=== PATIENT | male | born 1950 | race Hispanic/Latino ===

== ENCOUNTER 2020-01-19 20:43 | Emergency (ER) | payer OTHER ==
[2020-01-19 22:01] LABS: Absolute Lymphocytes (CBC) 1.2 K/uL (0.7-4.9); Basophils % 0.6 % (0-1.3); Hematocrit 42.3 % (39.6-49.0); Lymphocytes % 16.3 % (15.3-44.8); MPV 8.7 fL (7.6-11.3); RBC Red Blood Cell Count 5.34 M/uL (4.33-5.43)
[2020-01-19] MEDS ORDERED: MAGNE/ALUM HYDROXD 30 ML UCUP ONE (22:05)
[2020-01-19] MEDS ORDERED: LIDOCAINE VISCOUS 2% SOLN 15 ML UDC ONE (22:06)
[2020-01-19 22:16] LABS: Bilirubin Direct 0.2 mg/dL (0-0.2); Bilirubin Total 0.6 mg/dL (0.2-1.0); Potassium 3.5 mmol/L (3.5-5.1); Protein, Total 7.9 g/dL (6.4-8.2)
[2020-01-19 23:04] LABS: Urine Blood NEGATIVE (NEG); Urine Glucose NEGATIVE (NEG); Urine Protein NEGATIVE (NEG); Urine Specific Gravity 1.025 (1.005-1.030); Urine pH 7.5 (5.0-7.0)
[2020-01-20 01:06] VITALS: TEMP 97.4
[2020-01-20 01:11] VITALS: BP 135/83; O2SAT 98
--- NOTE | 2020-01-20 15:52 | RAD REPORT ---
EXAM DESCRIPTION: Abdomen Pelvis W Contrast CLINICAL HISTORY: 69 years Male ABD PAIN COMPARISON: None. TECHNIQUE: Contiguous axial images obtained through the abdomen and pelvis following IV contrast. Re formatted images obtained. This exam was performed according to our department optimization program which includes automated exp osure control, adjustment of the mA and/or kv according to patient size and/or use of iterative recon struction technique. FINDINGS: Mild atelectatic changes. Small hiatal hernia. There appears to be wall thickening in the lower esophagus and clinical correlat ion is recommended to exclude the possibility of esophagitis. There is a small area of low density in the liver adjacent to the area of the gallbladder fossa likel y a small cyst. The spleen and pancreas appear unremarkable. No adrenal masses. The kidneys appear unremarkable. No hydronephrosis. The gallbladder is visualized. Atherosclerotic calcifications. No aneurysmal dilatation of the aorta. No bowel obstruction. The appendix appears unremarkable. There is colonic diverticulosis. No significant free pelvic fluid. The prostate gland is slightly enlarged. There is a small fat-containing right inguinal hernia. Small fat-containing umbilical hernia. Degenerative changes in the spine. IMPRESSION: There appears to be wall thickening in the lower esophagus which could be from esophagit is. Clinical correlation recommended. No acute intra-abdominal abnormality is identified. The prostate gland is slightly enlarged. Electronically signed by: Rancho Ring MD 01/19/2020 11:23 PM CDT Due to temporary technical issues with the PACS/Fluency reporting system, reports are being signed by the in house radiologist without review asa courtesy to ensure prompt reporting. The interpreting ra diologist is fully responsible for the content of the report.
--- NOTE | 2020-01-22 17:30 | EDPHYS ---
Physician Documentation [facility] Name: Hermilo Dickens Age: 69 yrs Sex: Male : 1950 Arrival Date: 01/19/2020 Time: 20:48 Bed 6 Private MD: ED Physician David Hughes HPI: 01/18 21:29 This 69 yrs old Male presents to ER via Ambulatory with complaints of mh7 Vomiting, Acid Reflux. 21:29 The patient presents to the emergency department with nausea, that is moderate, mh7 abdominal pain, of the epigastric area, described as burning, intermittent, waxing and waning, and does not radiate. Onset: The symptoms/episode began/occurred 5 day(s) ago. Possible causes: unknown. The symptoms are aggravated by food , The symptoms are alleviated by prescription meds. Associated signs and symptoms: Pertinent negatives: anorexia, belching, constipation, diarrhea, dysuria, fever, flatulence, GI bleeding, hematuria. Severity of symptoms: At their worst the symptoms were moderate today, in the emergency department the symptoms have improved markedly. The patient has not experienced similar symptoms in the past. The patient has been recently seen by a physician: the patient's primary care provider. Historical: - Allergies: 20:56 No Known Allergies; ca1 - Home Meds: 20:56 pantoprazole oral oral [Active]; Amoxicillin Oral [Active]; Metronidazole Oral [Active];ca1 - PMHx: 20:56 None; ca1 - PSHx: 20:56 None; ca1 - Immunization history:: Adult Immunizations up to date. - Social history:: Smoking status: Patient denies any tobacco usage or history of. ROS: 21:29 Constitutional: Negative for fever, chills, and weight loss, Eyes: Negative for injury, mh7 pain, redness, and discharge, ENT: Negative for injury, pain, and discharge, Neck: Negative for injury, pain, and swelling, Cardiovascular: Negative for chest pain, palpitations, and edema, Respiratory: Negative for shortness of breath, cough, wheezing, and pleuritic chest pain, Back: Negative for injury and pain, : Negative for injury, bleeding, discharge, and swelling, MS/Extremity: Negative for injury and deformity, Skin: Negative for injury, rash, and discoloration, Neuro: Negative for headache, weakness, numbness, tingling, and seizure, Psych: Negative for depression, anxiety, suicide ideation, homicidal ideation, and hallucinations, Allergy/Immunology: Negative for hives, rash, and allergies, Endocrine: Negative for neck swelling, polydipsia, polyuria, polyphagia, and marked weight changes, Hematologic/Lymphatic: Negative for swollen nodes, abnormal bleeding, and unusual bruising. Exam: 21:29 Constitutional: This is a well developed, well nourished patient who is awake, alert, 7 and in no acute distress. Head/Face: Normocephalic, atraumatic. Neck: Trachea midline, no thyromegaly or masses palpated, and no cervical lymphadenopathy. Supple, full range of motion without nuchal rigidity, or vertebral point tenderness. No Meningismus. Chest/axilla: Normal chest wall appearance and motion. Nontender with no deformity. No lesions are appreciated. Cardiovascular: Regular rate and rhythm with a normal S1 and S2. No gallops, murmurs, or rubs. Normal PMI, no JVD. No pulse deficits. Respiratory: Lungs have equal breath sounds bilaterally, clear to auscultation and percussion. No rales, rhonchi or wheezes noted. No increased work of breathing, no retractions or nasal flaring. 21:29 Back: No spinal tenderness. No costovertebral tenderness. Full range of motion. Skin: Warm, dry with normal turgor. Normal color with no rashes, no lesions, and no evidence of cellulitis. MS/ Extremity: Pulses equal, no cyanosis. Neurovascular intact. Full, normal range of motion. Neuro: Awake and alert, GCS 15, oriented to person, place, time, and situation. Cranial nerves II-XII grossly intact. Motor strength 5/5 in all extremities. Sensory grossly intact. Cerebellar exam normal. Normal gait. Psych: Awake, alert, with orientation to person, place and time. Behavior, mood, and affect are within normal limits. 21:58 ECG was reviewed by the Attending Physician. [facility] Vital Signs: 20:51 BP 154 / 94; Pulse 105; Resp 19 S; Temp 97.4(TE); Pulse Ox 98% on R/A; Weight 81.65 kg ca1 (R); Height 5 ft. 6 in. (167.64 cm) (M); 22:38 BP 144 / 82; Pulse 82; Resp 14; Pulse Ox 100% on R/A; Pain 0/10; ao 23:47 BP 115 / 74; Pulse 85; Resp 18; Pulse Ox 99% on R/A; ao 01/19 00:51 BP 135 / 83; Pulse 80; Resp 16; Pulse Ox 98% on R/A; ao 01/18 20:51 Body Mass Index 29.05 (81.65 kg, 167.64 cm) ca1 MDM: 01/18 21:18 Patient medically screened. [facility] 23:57 Differential diagnosis: Nonspecific abd pain, gastritis, pancreatitis, diverticulitis. [facility] Data reviewed: vital signs, nurses notes, lab test result(s), EKG, radiologic studies, CT scan. 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 Interpretation: normal. Counseling: I had a detailed discussion with the patient and/or guardian regarding: the historical points, exam findings, and any diagnostic results supporting the discharge/admit diagnosis, lab results, radiology results, the need for outpatient follow up, to return to the emergency department if symptoms worsen or persist or if there are any questions or concerns that arise at home. Response to treatment: the patient's symptoms have resolved after treatment, the patient's blood pressure is in an acceptable range, mental status has returned to baseline, the patient no longer shows bradycardia, the patient is not short of breath, the patient is not tachycardic, the patient's pain is gone, the patient's temperature has normalized. 01/18 21:23 Order name: Basic Metabolic Panel; Complete Time: 22:26 [facility] 01/18 21:23 Order name: CBC with Diff; Complete Time: 22:26 [facility] 01/18 21:23 Order name: Hepatic Function; Complete Time: 22:26 [facility] 01/18 21:23 Order name: Lipase; Complete Time: 22:26 [facility] 01/18 22:00 Order name: CT Abd/Pelvis - IV Contrast Only [facility] 01/18 22:59 Order name: Urine Dipstick--Ancillary (enter results); Complete Time: 23:38 nj 01/18 21:23 Order name: IV Saline Lock; Complete Time: 22:09 [facility] 01/18 21:23 Order name: Labs collected and sent; Complete Time: 22:09 7 01/18 21:23 Order name: Urine Dipstick-Ancillary (obtain specimen); Complete Time: 23:04 [facility] 01/18 21:23 Order name: EKG - Nurse/Tech; Complete Time: 22:08 mh7 EC:58 Rate is 83 beats/min. Rhythm is regular. QRS [place] is Normal. IA interval is normal. QRS mh7 interval is normal. QT interval is normal. No Q waves. T waves are Normal. No ST changes noted. Clinical impression: Normal ECG. Administered Medications: 22:02 Drug: GI Cocktail without - (Maalox Suspension 30 ml, Lidocaine Liquid 2 % 15 lp1 ml) Route: PO; 23:06 Follow up: Response: No adverse reaction; Pain is decreased ao Disposition: 01/20/20 00:00 Discharged to Home. Impression: Esophagitis, unspecified, Nausea and vomiting. - Condition is Stable. - Discharge Instructions: Esophagitis, Nausea and Vomiting, Adult, [id number]. - Prescriptions for Zofran ODT 4 mg Oral tablet,disintegrating - place 1 tablet by TRANSLINGUAL route every 8 hours As needed; 10 tablet. - Medication Reconciliation Form, Thank You Letter, Antibiotic Education, Prescription Opioid Use form. - Follow up: Private Physician; When: 2 - 3 days; Reason: Worsening of condition, Re-evaluation by your physician. Follow up: Miguel Ángel Acosta MD; When: 2 - 3 days; Reason: If symptoms return, Worsening of condition. - Problem is new. - Symptoms have improved. Signatures: Dispatcher [employer] EDPA Kaycee Velázquez RN RN lp1 Tarik Tovar RN RN ao Acob, Cheryl, RN RN ca1 Holmes, Maurice, MD MD 7 Corrections: (The following items were deleted from the chart) 01/19 00:52 00:00 01/20/2020 00:00 Discharged to Home. Impression: Esophagitis, unspecified; Nausea ao and vomiting. Condition is Stable. Forms are Medication Reconciliation Form, Thank You Letter, Antibiotic Education, Prescription Opioid Use. Follow up: Private Physician; When: 2 - 3 days; Reason: Worsening of condition, Re-evaluation by your physician. Follow up: Miguel Ángel Acosta; When: 2 - 3 days; Reason: If symptoms return, Worsening of condition. Problem is new. Symptoms have improved. mh7
--- NOTE | 2020-01-22 17:30 | ER ---
Nurse's Notes [facility] Name: Hermilo Dickens Age: 69 yrs Sex: Male : 1950 Arrival Date: 01/19/2020 Time: 20:48 Bed 6 Private MD: Diagnosis: Esophagitis, unspecified;Nausea and vomiting Presentation: 01/18 20:51 Chief complaint: Patient states: Abdominal pain since 4-5 days ago. Reports N/V. Went ca1 to the clinic yesterday and today, was prescribed amox, pantoprazole, and metronidazole. States, "Am here because every time I eat I still feel very nauseated and I have frequent hiccups". Denies fever and diarrhea. Coronavirus screen: Proceed with normal triage. Patient denies a cough. Patient denies shortness of breath or difficulty breathing. Patient denies measured and/or subjective temperature greater than 100.4F prior to today's visit. Patient denies travel on a cruise ship or to a country the [facility] currently lists as an affected area. Patient denies contact with known and/or suspected case of COVID-19. Ebola Screen: Patient negative for fever greater than or equal to 101.5 degrees Fahrenheit, and additional compatible Ebola Virus Disease symptoms Patient denies exposure to infectious person. Patient denies travel to an Ebola-affected area in the 21 days before illness onset. No symptoms or risks identified at this time. Initial Sepsis Screen: Does the patient meet any 2 criteria? No. Patient's initial sepsis screen is negative. Does the patient have a suspected source of infection? No. Patient's initial sepsis screen is negative. Risk Assessment: Do you want to hurt yourself or someone else? Patient reports no desire to harm self or others. Onset of symptoms was January 19, 2020. 20:51 Method Of Arrival: Ambulatory ca1 20:51 Acuity: MAXIMILIAN 3 ca1 Triage Assessment: 21:21 GI: Reports nausea. ao Historical: - Allergies: 20:56 No Known Allergies; ca1 - Home Meds: 20:56 pantoprazole oral oral [Active]; Amoxicillin Oral [Active]; Metronidazole Oral [Active];ca1 - PMHx: 20:56 None; ca1 - PSHx: 20:56 None; ca1 - Immunization history:: Adult Immunizations up to date. - Social history:: Smoking status: Patient denies any tobacco usage or history of. Screenin:21 Abuse screen: Denies threats or abuse. Denies injuries from another. Nutritional ao screening: No deficits noted. Tuberculosis screening: No symptoms or risk factors identified. Fall Risk None identified. Assessment: 21:18 General: Appears in no apparent distress. comfortable, Behavior is calm, cooperative, ao appropriate for age. Pain: Denies pain. Neuro: Level of Consciousness is awake, alert, obeys commands, Oriented to person, place, time, situation, Appropriate for age Moves all extremities. Full function Speech is normal, Facial symmetry appears normal, Pupils are PERRLA. Cardiovascular: Capillary refill < 3 seconds Patient's skin is warm and dry. Respiratory: Airway is patent Respiratory effort is even, unlabored, Respiratory pattern is regular, symmetrical. GI: Abdomen is round non-distended. : No deficits noted. No signs and/or symptoms were reported regarding the genitourinary system. EENT: No signs and/or symptoms were reported regarding the EENT system. Derm: No signs and/or symptoms reported regarding the dermatologic system. Skin is intact, Skin is pink, warm \\T\\ dry. Musculoskeletal: No signs and/or symptoms reported regarding the musculoskeletal system. Circulation, motion, and sensation intact. Range of motion: intact in all extremities. 22:38 Reassessment: Patient appears in no apparent distress at this time. Patient and/or ao family updated on plan of care and expected duration. Pain level reassessed. Pt in bed with no distress. 23:47 Reassessment: Patient appears in no apparent distress at this time. Patient and/or ao family updated on plan of care and expected duration. Pain level reassessed. Vital Signs: 20:51 BP 154 / 94; Pulse 105; Resp 19 S; Temp 97.4(TE); Pulse Ox 98% on R/A; Weight 81.65 kg ca1 (R); Height 5 ft. 6 in. (167.64 cm) (M); 22:38 BP 144 / 82; Pulse 82; Resp 14; Pulse Ox 100% on R/A; Pain 0/10; ao 23:47 BP 115 / 74; Pulse 85; Resp 18; Pulse Ox 99% on R/A; ao 01/19 00:51 BP 135 / 83; Pulse 80; Resp 16; Pulse Ox 98% on R/A; ao 01/18 20:51 Body Mass Index 29.05 (81.65 kg, 167.64 cm) ca1 ED Course: 01/18 20:00 EKG done, by ED staff. ao 20:48 Patient arrived in ED. bp1 20:55 Triage completed. ca1 20:56 Arm band placed on right wrist. ca1 20:58 David Hughes MD is Attending Physician. [facility] 21:10 Tarik Tovar, RN is Primary Nurse. ao 21:21 Patient has correct armband on for positive identification. Pulse ox on. NIBP on. ao 21:57 Inserted saline lock: 20 gauge antecubital area, using aseptic technique. tt3 22:45 CT Abd/Pelvis - IV Contrast Only In Process Unspecified. EDMS 23:59 Miguel Ángel Acosta MD is Referral Physician. [facility] 01/19 00:51 No provider procedures requiring assistance completed. IV discontinued, intact, ao bleeding controlled, No redness/swelling at site. Pressure dressing applied. Administered Medications: 01/18 22:02 Drug: GI Cocktail without - (Maalox Suspension 30 ml, Lidocaine Liquid 2 % 15 lp1 ml) Route: PO; 23:06 Follow up: Response: No adverse reaction; Pain is decreased ao Outcome: 01/19 00:00 Discharge ordered by . [facility] 00:51 Discharged to home ambulatory. ao 00:51 Condition: stable 00:51 Discharge instructions given to patient, Instructed on discharge instructions, follow up and referral plans. Demonstrated understanding of instructions, follow-up care, medications. 00:52 Patient left the ED. ao Signatures: Dispatcher [employer] EDVT Kaycee Velázquez RN RN lp1 Tarik Tovar, ALIX THOMSON ao Dennise Diana RN RN ca1 Nery Timmons bp1 David Hughes MD MD [facility] Korey, Shon tt3
== END 2020-01-20 00:52 | disposition home or self-care (01) ==
LOC: ER 20:43
DX: K20.9 Esophagitis, unspecified (principal)
CPT/HCPCS: 85025; 80048; 36415; 80076; 81003; 83690; 74177; 99284; Q9967

== ENCOUNTER 2020-01-20 22:54 | Emergency (ER) | payer OTHER ==
[2020-01-21] MEDS ORDERED: NA CHLORIDE 0.9% 1,000 ML ONE (01:05)
[2020-01-21] MEDS ORDERED: METOCLOPRAMIDE 10 MG/2mL INJ ONE (01:05)
[2020-01-21] MEDS ORDERED: FAMOTIDINE 20 MG/2 ML VIAL IV ONE (01:05)
[2020-01-21 01:23] LABS: Absolute Lymphocytes (CBC) 1.3 K/uL (0.7-4.9); Basophils % 0.8 % (0-1.3); Hematocrit 41.1 % (39.6-49.0); Lymphocytes % 17.5 % (15.3-44.8); MPV 8.8 fL (7.6-11.3); RBC Red Blood Cell Count 5.16 M/uL (4.33-5.43)
[2020-01-21 01:43] LABS: Albumin 4.1 g/dL (3.4-5.0); Bilirubin Direct 0.2 mg/dL (0-0.2); Bilirubin Total 0.8 mg/dL (0.2-1.0); Potassium 3.5 mmol/L (3.5-5.1); Protein, Total 8.1 g/dL (6.4-8.2)
[2020-01-21] MEDS ORDERED: LIDOCAINE VISCOUS 2% SOLN 15 ML UDC ONE (03:32)
[2020-01-21] MEDS ORDERED: MAGNE/ALUM HYDROXD 30 ML UCUP ONE (03:32)
[2020-01-21 04:46] VITALS: TEMP 97.7
[2020-01-21 04:48] VITALS: BP 116/74; O2SAT 97
--- NOTE | 2020-01-22 18:35 | ER ---
Nurse's Notes [facility] Name: Hermilo Dickens Age: 69 yrs Sex: Male : 1950 Arrival Date: 01/20/2020 Time: 22:56 Bed 23 Private MD: Diagnosis: Gastro-esophageal reflux disease with esophagitis Presentation: 01/19 23:14 Chief complaint: Patient states: Was seen yesterday for same complaint, reports not sg improving at this time. Coronavirus screen: Proceed with normal triage. Ebola Screen: Patient negative for fever greater than or equal to 101.5 degrees Fahrenheit, and additional compatible Ebola Virus Disease symptoms Patient denies exposure to infectious person. Patient denies travel to an Ebola-affected area in the 21 days before illness onset. No symptoms or risks identified at this time. Initial Sepsis Screen: Does the patient meet any 2 criteria? No. Patient's initial sepsis screen is negative. Does the patient have a suspected source of infection? No. Patient's initial sepsis screen is negative. Risk Assessment: Do you want to hurt yourself or someone else? Patient reports no desire to harm self or others. Onset of symptoms was January 20, 2020. Care prior to arrival: None. Transition of care: patient was not received from another setting of care. 23:14 Method Of Arrival: EMS: [facility] sg 23:14 Acuity: MAXIMILIAN 3 sg Historical: - Allergies: 23:13 No Known Allergies; sg - PMHx: 01/20 00:21 GERD; sg - PSHx: 01/19 23:13 None; sg - Immunization history:: Adult Immunizations up to date. - Social history:: Smoking status: Patient denies any tobacco usage or history of. Screenin:20 Abuse screen: Denies threats or abuse. Nutritional screening: No deficits noted. ea Tuberculosis screening: No symptoms or risk factors identified. Fall Risk None identified. Assessment: 01/20 00:20 General: Appears in no apparent distress. Behavior is appropriate for age. Pain: Denies ea pain. Neuro: Level of Consciousness is awake, alert, obeys commands, Oriented to person, place, time, situation. Cardiovascular: Patient's skin is warm and dry. Respiratory: Airway is patent Respiratory effort is even, unlabored, Respiratory pattern is regular, symmetrical. GI: Reports gaseousness, indigestion, belching. Derm: Skin is pink, warm \T\ dry. Vital Signs: 01/19 23:26 BP 142 / 60; Pulse 88; Resp 16; Temp 97.7; Pulse Ox 100% on R/A; sg 01/20 02:57 BP 116 / 74; Pulse 77; Resp 16; Temp 97.7; Pulse Ox 97% on R/A; sg 04:00 BP 136 / 62; Pulse 72; Resp 17; Temp 97.9; Pulse Ox 99% on R/A; sg ED Course: 01/19 22:56 Patient arrived in ED. ds1 23:14 Arm band placed on. sg 23:16 Triage completed. sg 23:30 Patient has correct armband on for positive identification. Bed in low position. Call ea light in reach. 23:56 David Hughes MD is Attending Physician. [facility] 01/20 00:20 Vega Ramsey, RN is Primary Nurse. sg 01:10 Initial lab(s) drawn, by ks, sent to lab. Inserted saline lock: 20 gauge in right sg antecubital area, using aseptic technique. Blood collected. 02:29 ekg monitor tech on. Pulse ox on. NIBP on. sg 04:20 Miguel Ángel Acosta MD is Referral Physician. [facility] 04:39 No provider procedures requiring assistance completed. IV discontinued, intact, sg bleeding controlled, No redness/swelling at site. Pressure dressing applied. Administered Medications: 01:10 Drug: NS 0.9% 1000 ml Route: IV; Rate: 1000 ml; Site: right antecubital; sg 01:47 Follow up: Response: No adverse reaction; IV Status: Completed infusion; IV Intake: sg 1000ml 01:10 Drug: Reglan 10 mg Route: IVP; Site: right antecubital; sg 01:40 Follow up: Response: No adverse reaction; No change in condition sg 01:10 Drug: Pepcid 20 mg Route: IVP; Site: right antecubital; sg 01:40 Follow up: Response: No adverse reaction; Pain is unchanged, physician notified 03:28 Drug: GI Cocktail without - (Maalox Suspension 30 ml, Lidocaine Liquid 2 % 15 rv ml) Route: PO; 04:20 Follow up: Response: No adverse reaction; Pain is decreased sg Intake: 01:47 IV: 1000ml; Total: 1000ml. sg Outcome: 04:21 Discharge ordered by 7 04:39 Discharged to home ambulatory. sg 04:39 Condition: good 04:39 Discharge instructions given to patient, Instructed on discharge instructions, follow up and referral plans. medication usage, safety practices, Demonstrated understanding of instructions, follow-up care, medications. 04:40 Patient left the ED. sg Signatures: Vega Ramsey RN RN sg Sanford, Demi ds1 Carli Sosa RN RN ea Vicente, Ronaldo, RN RN rv Holmes, Maurice, MD MD 7 Corrections: (The following items were deleted from the chart) 01:02 01/19 23:20 General: Appears in no apparent distress. Behavior is appropriate for age, [facility] 01/20 01:01/19 23:20 Pain: Denies pain. [facility] 01/20 01:01/19 23:20 Neuro: Level of Consciousness is awake, alert, obeys commands, Oriented to ea person, place, time, situation, 01/20 01:01/19 23:20 Cardiovascular: Patient's skin is warm and dry. [facility] 01/20 01:01/19 23:20 Respiratory: Airway is patent Respiratory effort is even, unlabored, ea Respiratory pattern is regular, symmetrical, 01/20 01:01/19 23:20 GI: Reports gaseousness, indigestion, belching [facility] 01/20 01:01/19 23:20 Derm: Skin is pink, warm \T\ dry. [facility]
--- NOTE | 2020-01-22 18:35 | EDPHYS ---
Physician Documentation [facility] Name: Hermilo Dickens Age: 69 yrs Sex: Male : 1950 Arrival Date: 01/20/2020 Time: 22:56 Bed 23 Private MD: ED Physician David Hughes HPI: 01/20 02:08 This 69 yrs old Male presents to ER via EMS with complaints of Acid mh7 Reflux-nausea. 02:08 The patient presents to the emergency department with nausea, that is mild, vomiting, mh7 that is intermittent. Onset: The symptoms/episode began/occurred yesterday. Possible causes: unknown. The symptoms are aggravated by food , The symptoms are alleviated by nothing. Associated signs and symptoms: Pertinent positives: belching, Pertinent negatives: abdominal pain, anorexia, constipation, diarrhea, dysuria, fever, flatulence, GI bleeding, hematuria. Severity of symptoms: At their worst the symptoms were moderate in the emergency department the symptoms have improved moderately. Historical: - Allergies: 01/19 23:13 No Known Allergies; sg - PMHx: 01/20 00:21 GERD; sg - PSHx: 01/19 23:13 None; sg - Immunization history:: Adult Immunizations up to date. - Social history:: Smoking status: Patient denies any tobacco usage or history of. ROS: 01/20 02:08 Constitutional: Negative for fever, chills, and weight loss, Eyes: Negative for injury, mh7 pain, redness, and discharge, ENT: Negative for injury, pain, and discharge, Neck: Negative for injury, pain, and swelling, Cardiovascular: Negative for chest pain, palpitations, and edema, Respiratory: Negative for shortness of breath, cough, wheezing, and pleuritic chest pain, Back: Negative for injury and pain, : Negative for injury, bleeding, discharge, and swelling, MS/Extremity: Negative for injury and deformity, Skin: Negative for injury, rash, and discoloration, Neuro: Negative for headache, weakness, numbness, tingling, and seizure, Psych: Negative for depression, anxiety, suicide ideation, homicidal ideation, and hallucinations, Allergy/Immunology: Negative for hives, rash, and allergies, Endocrine: Negative for neck swelling, polydipsia, polyuria, polyphagia, and marked weight changes, Hematologic/Lymphatic: Negative for swollen nodes, abnormal bleeding, and unusual bruising. Exam: 02:08 Constitutional: This is a well developed, well nourished patient who is awake, alert, mh7 and in no acute distress. Head/Face: Normocephalic, atraumatic. Eyes: Pupils equal round and reactive to light, extra-ocular motions intact. Lids and lashes normal. Conjunctiva and sclera are non-icteric and not injected. Cornea within normal limits. Periorbital areas with no swelling, redness, or edema. Neck: Trachea midline, no thyromegaly or masses palpated, and no cervical lymphadenopathy. Supple, full range of motion without nuchal rigidity, or vertebral point tenderness. No Meningismus. Chest/axilla: Normal chest wall appearance and motion. Nontender with no deformity. No lesions are appreciated. Cardiovascular: Regular rate and rhythm with a normal S1 and S2. No gallops, murmurs, or rubs. Normal PMI, no JVD. No pulse deficits. Respiratory: Lungs have equal breath sounds bilaterally, clear to auscultation and percussion. No rales, rhonchi or wheezes noted. No increased work of breathing, no retractions or nasal flaring. Abdomen/GI: Soft, non-tender, with normal bowel sounds. No distension or tympany. No guarding or rebound. No evidence of tenderness throughout. Back: No spinal tenderness. No costovertebral tenderness. Full range of motion. Skin: Warm, dry with normal turgor. Normal color with no rashes, no lesions, and no evidence of cellulitis. MS/ Extremity: Pulses equal, no cyanosis. Neurovascular intact. Full, normal range of motion. Neuro: Awake and alert, GCS 15, oriented to person, place, time, and situation. Cranial nerves II-XII grossly intact. Motor strength 5/5 in all extremities. Sensory grossly intact. Cerebellar exam normal. Normal gait. Psych: Awake, alert, with orientation to person, place and time. Behavior, mood, and affect are within normal limits. Vital Signs: 01/19 23:26 BP 142 / 60; Pulse 88; Resp 16; Temp 97.7; Pulse Ox 100% on R/A; sg 01/20 02:57 BP 116 / 74; Pulse 77; Resp 16; Temp 97.7; Pulse Ox 97% on R/A; sg 04:00 BP 136 / 62; Pulse 72; Resp 17; Temp 97.9; Pulse Ox 99% on R/A; sg MDM: 00:39 Patient medically screened. [facility] 04:19 Differential diagnosis: gastritis, pancreatitis, viral gastroenteritis, mh7 gastroenteritis. Data reviewed: vital signs, nurses notes, old medical records, lab test result(s), cardiac enzymes, CBC, electrolytes. Counseling: I had a detailed discussion with the patient and/or guardian regarding: the historical points, exam findings, and any diagnostic results supporting the discharge/admit diagnosis, lab results, the need for outpatient follow up, to return to the emergency department if symptoms worsen or persist or if there are any questions or concerns that arise at home. 01/20 00:41 Order name: Basic Metabolic Panel; Complete Time: 02:16 01/20 00:41 Order name: CBC with Diff; Complete Time: 01:37 01/20 00:41 Order name: Hepatic Function; Complete Time: 02:16 01/20 00:41 Order name: Lipase; Complete Time: 02:16 01/20 02:17 Order name: Troponin (emerg Dept Use Only); Complete Time: 03:19 01/20 00:41 Order name: IV Saline Lock; Complete Time: 00:53 01/20 00:41 Order name: Labs collected and sent; Complete Time: 00:53 01/20 02:17 Order name: EKG - Nurse/Tech; Complete Time: 02:29 7 Administered Medications: 01:10 Drug: NS 0.9% 1000 ml Route: IV; Rate: 1000 ml; Site: right antecubital; sg 01:47 Follow up: Response: No adverse reaction; IV Status: Completed infusion; IV Intake: sg 1000ml 01:10 Drug: Reglan 10 mg Route: IVP; Site: right antecubital; sg 01:40 Follow up: Response: No adverse reaction; No change in condition sg 01:10 Drug: Pepcid 20 mg Route: IVP; Site: right antecubital; sg 01:40 Follow up: Response: No adverse reaction; Pain is unchanged, physician notified sg 03:28 Drug: GI Cocktail without - (Maalox Suspension 30 ml, Lidocaine Liquid 2 % 15 rv ml) Route: PO; 04:20 Follow up: Response: No adverse reaction; Pain is decreased sg Disposition: 01/21/20 04:21 Discharged to Home. Impression: Gastro-esophageal reflux disease with esophagitis. - Condition is Stable. - Discharge Instructions: Food Choices for Gastroesophageal Reflux Disease, Adult, Esophagitis, Gastroesophageal Reflux Disease, Adult. - Prescriptions for Bentyl 20 mg Oral Tablet - take 1 tablet by ORAL route every 6 hours As needed; 20 tablet. Reglan 10 mg Oral Tablet - take 1 tablet by ORAL route every 8 hours As needed take 30 minutes before meals and at bedtime; 10 tablet. - Medication Reconciliation Form, Thank You Letter, Antibiotic Education, Prescription Opioid Use form. - Follow up: Private Physician; When: 1 - 2 days; Reason: Worsening of condition, Re-evaluation by your physician. Follow up: Miguel Ángel Acosta MD; When: 1 - 2 days; Reason: Worsening of condition, Recheck today's complaints. - Problem is an ongoing problem. - Symptoms have improved. Signatures: Dispatcher [employer] EDVega Friend RN RN Bruce Montanez RN RN rv David Hughes MD MD mh7 Corrections: (The following items were deleted from the chart) 04:40 04:21 01/21/2020 04:21 Discharged to Home. Impression: Gastro-esophageal reflux disease sg with esophagitis. Condition is Stable. Forms are Medication Reconciliation Form, Thank You Letter, Antibiotic Education, Prescription Opioid Use. Follow up: Private Physician; When: 1 - 2 days; Reason: Worsening of condition, Re-evaluation by your physician. Follow up: Miguel Ángel Acosta; When: 1 - 2 days; Reason: Worsening of condition, Recheck today's complaints. Problem is an ongoing problem. Symptoms have improved. mh7
== END 2020-01-21 04:40 | disposition home or self-care (01) ==
LOC: ER 22:54
DX: K21.0 Gastro-esophageal reflux disease with esophagitis (principal)
CPT/HCPCS: 96361; 93005 ×2; 85025; 80048; 36415; 80076; 84484; 83690; 96375; 96374; 99284; J2765; J7030

== ENCOUNTER 2022-12-18 13:22 | Emergency (ER) | payer OTHER ==
--- NOTE | 2022-12-18 14:27 | RAD REPORT ---
EXAM DESCRIPTION: CT - Head Brain Wo Cont - 12/18/2022 2:09 pm CLINICAL HISTORY: Numbness COMPARISON: None TECHNIQUE: Computed axial tomography of the head was obtained. IV contrast was not requested. All CT scans are performed using dose optimization technique as appropriate and may include automated exposure control or mA/KV adjustment according to patient size. FINDINGS: An intracranial bleed is not seen The ventricles are normal in caliber No extra-axial fluid collection is noted. 7 millimeter calcification anterior right basal ganglia may be secondary to prior infection or cavern ous angioma. No surrounding edema Mild low-density areas within periventricular, deep and subcortical white matter likely represent isc hemic changes secondary to small vessel disease. Fluid within the sinuses/ mastoids is not seen. IMPRESSION: No acute intracranial abnormality is seen If patient's symptoms persist MRI of the brain would be recommended
[2022-12-18 14:31] LABS: Absolute Lymphocytes (CBC) 0.9 K/uL (0.7-4.9); Hematocrit 43.4 % (39.6-49.0); Lymphocytes % 13.2 % (15.3-44.8); MCV 77.4 fL (80-100); MPV 8.5 fL (7.6-11.3); RBC Red Blood Cell Count 5.62 M/uL (4.33-5.43)
[2022-12-18 14:37] LABS: Protime INR 1.05
--- NOTE | 2022-12-18 14:45 | RAD REPORT ---
EXAM DESCRIPTION: Bhavikjv Angio12/18/2022 2:32 pm CLINICAL HISTORY: Facial numbness COMPARISON: None TECHNIQUE: 50 cc Isovue 370 was administered intravenously. 3D MIP reconstruction performed All CT scans are performed using dose optimization technique as appropriate and may include automated exposure control or mA/KV adjustment according to patient size. FINDINGS: Subclavian and brachiocephalic artery is unremarkable Common carotid, internal carotid and external carotid arteries are unremarkable No significant stenosis/ dissection Vertebral arteries unremarkable IMPRESSION: No significant stenosis/ abnormality displayed NASCET criteria used. Mild 0-49% stenosis Moderate 50-69% stenosis Severe 70-99% stenosis
[2022-12-18 14:50] LABS: Potassium 3.9 mEq/L (3.5-5.1); Troponin High Sensitivity 6.8 pg/mL (<58.9)
--- NOTE | 2022-12-18 14:50 | RAD REPORT ---
EXAM DESCRIPTION: CTHead angio12/18/2022 2:32 pm CLINICAL HISTORY: Facial numbness COMPARISON: None TECHNIQUE: 100 cc Isovue [address] angiogram of the head was obtained. 3D MIPS reconstruction performed. All CT scans are performed using dose optimization technique as appropriate and may include automated exposure control or mA/KV adjustment according to patient size. FINDINGS: The basilar, internal carotid, anterior cerebral, middle cerebral and posterior cerebral a rteries do not demonstrate a significant abnormality An aneurysm is not seen A significant stenosis is not noted. IMPRESSION: Unremarkable exam
--- NOTE | 2022-12-18 15:28 | RAD REPORT ---
EXAM DESCRIPTION: MRI - Brain Wo Cont - 12/18/2022 3:18 pm CLINICAL HISTORY: Facial and foot numbness COMPARISON: Head CT April 19, 2023 TECHNIQUE: Axial, sagittal, and coronal magnetic resonance images of the brain were obtained. FINDINGS: 7 millimeter area of low signal right basal ganglia corresponds to a calcification. This m ay be secondary to prior infection. Mild to moderate small areas of increased signal periventricular, deep and subcortical white matter m ay be secondary to ischemic changes secondary to small vessel disease Diffusion-weighted/ADC mapping does not reveal evidence of acute infarction. The ventricles are normal caliber. An extra-axial fluid collection is not noted. Fluid within the sinuses/mastoids is not seen IMPRESSION: No acute intracranial abnormality noted
--- NOTE | 2022-12-18 16:29 | EDPHYS ---
Physician Documentation [facility] Name: Hermilo Dickens Age: 72 yrs Sex: Male : 1950 Arrival Date: 12/18/2022 Time: 13: Bed 4 Private MD: ED Physician Dwayne Alejandro HPI: 12/18 16:29 This 72 yrs old Male presents to ER via Ambulatory with complaints of Numbness ms3 Of Face, Numbness Of leg. 16:29 72-year-old male with diabetes presents for left facial and left foot numbness ms3 that began yesterday. Patient denies headache, nausea, vomiting, weakness. Patient denies alleviating or inciting factors. Patient denies pain. Historical: - Allergies: 13:30 No Known Allergies; ld1 - PMHx: 13:30 GERD; Pre Diabetic; ld1 - PSHx: 13:30 None; ld1 - Immunization history:: Adult Immunizations up to date, Client reports receiving the 2nd dose of the Covid vaccine. - Social history:: Smoking status: Patient denies any tobacco usage or history of. Patient/guardian denies using alcohol. ROS: 16:29 Constitutional: Negative for fever, and chills. Neck: Negative for injury, pain, and ms3 swelling, Cardiovascular: Negative for chest pain, and palpitations. Respiratory: Negative for shortness of breath, cough, wheezing, and pleuritic chest pain, Abdomen/GI: Negative for abdominal pain, nausea, vomiting, diarrhea, and constipation, Back: Negative for injury and pain, MS/Extremity: Negative for injury and deformity, Skin: Negative for injury, rash, and discoloration. 16:29 Neuro: Positive for Left face and foot numbness. Exam: 16:29 Constitutional: This is a well developed, well nourished patient who is awake, alert, ms3 and in no acute distress. Head/Face: Normocephalic, atraumatic. Eyes: Pupils equal round and reactive to light, extra-ocular motions intact. Lids and lashes normal. Conjunctiva and sclera are non-icteric and not injected. Periorbital areas with no swelling, redness, or edema. ENT: Nares patent. No nasal discharge, no septal abnormalities noted. Tympanic membranes are normal and external auditory canals are clear. Oropharynx with no redness, swelling, or masses, exudates, or evidence of obstruction, uvula midline. Mucous membranes moist. Neck: Trachea midline, no cervical lymphadenopathy. Supple, full range of motion without nuchal rigidity, or vertebral point tenderness. No Meningismus. Chest/axilla: Normal chest wall appearance and motion. Nontender with no deformity. Cardiovascular: Regular rate and rhythm with a normal S1 and S2. No gallops, murmurs, or rubs. Normal PMI, no JVD. No pulse deficits. Respiratory: Lungs have equal breath sounds bilaterally, clear to auscultation and percussion. No rales, rhonchi or wheezes noted. No increased work of breathing, no retractions or nasal flaring. Abdomen/GI: Soft, non-tender, with normal bowel sounds. No distension or tympany. No guarding or rebound. No evidence of tenderness throughout. Skin: Warm, dry with normal turgor. Normal color with no rashes, no lesions, and no evidence of cellulitis. MS/ Extremity: Pulses equal, no cyanosis. Neurovascular intact. Full, normal range of motion. Neuro: Awake and alert, GCS 15, oriented to person, place, time, and situation. Cranial nerves II-XII grossly intact. Motor strength 5/5 in all extremities. Sensory grossly intact. Cerebellar exam normal. Normal gait. 16:29 ECG was reviewed by the Attending Physician. 19:51 Radiologist reports: No acute intracranial abnormal ms3 Vital Signs: 13:27 BP 184 / 88; Pulse 89; Resp 18; Temp 98.4(O); Pulse Ox 97% on R/A; Weight 77.11 kg; ld1 Height 5 ft. 8 in. ; Pain 0/10; 14:54 BP 163 / 90; Pulse 81; Resp 18; Pulse Ox 97% on R/A; ph 16:57 BP 157 / 85; Pulse 79; Resp 16; Pulse Ox 99% ; bp 13:27 Body Mass Index 25.85 (77.11 kg, 172.72 cm) ld1 13:27 Pain Scale: Adult ld1 MDM: 13:46 Patient medically screened. ms3 16:29 Differential diagnosis: CVA, TIA, metabolic disorder. Data reviewed: vital signs, ms3 nurses notes, lab test result(s), EKG, radiologic studies, and as a result, I will discharge patient. Consideration of Admission/Observation Escalation of care including admission/observation considered. Independent interpretation of the following test(s) in the Emergency Department EKG: See my EKG interpretation above monitoring analyst: rate is 80 beats/min, Rhythm is normal sinus rhythm, regular, with no ectopy, Interpretation: normal rate, normal rhythm. Counseling: I had a detailed discussion with the patient and/or guardian regarding: the historical points, exam findings, and any diagnostic results supporting the discharge/admit diagnosis, lab results, radiology results, the need for outpatient follow up, to return to the emergency department if symptoms worsen or persist or if there are any questions or concerns that arise at home. ED course: Discussed labs, CT, CTA, MRI results with patient. Patient to follow-up as instructed. Patient understands and agrees with plan. All questions were answered. Return precautions discussed include worsening symptoms, increasing numbness, weakness, headache, or any other concerns. On reevaluation patient is alert and oriented x4, no apparent distress, nontoxic-appearing, ambulatory in emergency department, speaking full sentences. 12/18 13:58 Order name: Basic Metabolic Panel; Complete Time: 14:51 ms3 12/18 13:58 Order name: CBC with Diff; Complete Time: 14:51 ms3 12/18 13:58 Order name: High Sensitivity Troponin; Complete Time: 14:51 ms3 12/18 13:58 Order name: Protime (+inr); Complete Time: 14:51 ms3 12/18 13:58 Order name: Ptt, Activated; Complete Time: 14:51 ms3 12/18 13:58 Order name: CT Head Brain wo Cont; Complete Time: 14:51 ms3 12/18 13:58 Order name: CXR XRAY; Complete Time: 19:51 ms3 12/18 14:21 Order name: CT Head Angio; Complete Time: 14:51 ms3 12/18 14:21 Order name: CT Neck Angio; Complete Time: 14:51 ms3 12/18 15:11 Order name: Brain Wo Cont; Complete Time: 15:56 EDMS 12/18 13:58 Order name: EKG; Complete Time: 13:59 ms3 12/18 13:58 Order name: Accucheck; Complete Time: 14:01 ms3 12/18 13:58 Order name: Cardiac monitoring; Complete Time: 14:09 ms3 12/18 13:58 Order name: EKG - Nurse/Tech; Complete Time: 14:21 ms3 12/18 13:58 Order name: IV Saline Lock; Complete Time: 14:09 ms3 12/18 13:58 Order name: Labs collected and sent; Complete Time: 14:09 ms3 12/18 13:58 Order name: NPO; Complete Time: 14:01 ms3 12/18 13:58 Order name: O2 Per Protocol; Complete Time: 14:01 ms3 12/18 13:58 Order name: O2 Sat Monitoring; Complete Time: 14:01 ms3 12/18 13:58 Order name: Stroke Swallow Screen; Complete Time: 14:01 ms3 EC:29 Rate is 79 beats/min. Rhythm is regular. QRS [place] is Normal. ME interval is normal. ms3 Clinical impression: NSR w/ Non-specific ST/T Changes. Interpreted by me. Reviewed by me. Administered Medications: No medications were administered Disposition Summary: 12/18/22 16:29 Discharge Ordered Location: Home ms3 Condition: Stable ms3 Diagnosis - Paresthesia of skin ms3 - L facial numbness, L foot numbness ms3 Followup: ms3 - With: Johnie Mirza DO - When: 2 - 3 days - Reason: Recheck today's complaints Followup: ms3 - With: Rikki Markham MD - When: 2 - 3 days - Reason: Recheck today's complaints Discharge Instructions: - Discharge Summary Sheet ms3 - Paresthesia, [id number] ms3 Forms: - Medication Reconciliation Form ms3 - Thank You Letter ms3 - Antibiotic Education ms3 - Prescription Opioid Use ms3 Signatures: Dispatcher [employer] EDMS Dwayne Alejandro DO DO ms3 Tara Alejandro RN RN ld1 Corrections: (The following items were deleted from the chart) 15:11 14:19 MR STROKE PROTOCOL+MRI.RAD.BRZ ordered. EDMS EDMS
--- NOTE | 2022-12-18 16:29 | ER ---
Nurse's Notes [facility] Name: Hermilo Dickens Age: 72 yrs Sex: Male : 1950 Arrival Date: 12/18/2022 Time: 13: Bed 4 Private MD: Diagnosis: Paresthesia of skin;L facial numbness, L foot numbness Presentation: 12/18 13:27 Chief complaint: Patient states: 1700 Yesterday pt reports noticing left foot tingling ld1 and left facial numbness. Coronavirus screen: At this time, the client does not indicate any symptoms associated with coronavirus-19. Ebola Screen: No symptoms or risks identified at this time. Initial Sepsis Screen: Does the patient meet any 2 criteria? No. Patient's initial sepsis screen is negative. Does the patient have a suspected source of infection? No. Patient's initial sepsis screen is negative. Risk Assessment: Do you want to hurt yourself or someone else? Patient reports no desire to harm self or others. Onset of symptoms was December 18, 2022. 13:27 Method Of Arrival: Ambulatory ld1 13:27 Acuity: MAXIMILIAN 3 ld1 Triage Assessment: 13:30 General: Appears in no apparent distress. comfortable, Behavior is calm, cooperative, ld1 appropriate for age. Pain: Denies pain. EENT: No signs and/or symptoms were reported regarding the EENT system. Neuro: Level of Consciousness is awake, alert, obeys commands, Oriented to person, place, time, situation, [employer] are equal bilaterally Moves all extremities. Gait is unsteady, Speech is normal, Facial symmetry appears normal. Cardiovascular: Capillary refill < 3 seconds Patient's skin is warm and dry. Respiratory: Airway is patent Respiratory effort is even, unlabored. GI: Abdomen is flat, non-distended. : No signs and/or symptoms were reported regarding the genitourinary system. Derm: No signs and/or symptoms reported regarding the dermatologic system. Musculoskeletal: No signs and/or symptoms reported regarding the musculoskeletal system. Historical: - Allergies: 13:30 No Known Allergies; ld1 - PMHx: 13:30 GERD; Pre Diabetic; ld1 - PSHx: 13:30 None; ld1 - Immunization history:: Adult Immunizations up to date, Client reports receiving the 2nd dose of the Covid vaccine. - Social history:: Smoking status: Patient denies any tobacco usage or history of. Patient/guardian denies using alcohol. Screenin:30 [facility] ED Fall Risk Assessment (Adult) History of falling in the last 3 months, bp including since admission No falls in past 3 months (0 pts). Abuse screen: Denies threats or abuse. Denies injuries from another. Nutritional screening: No deficits noted. Tuberculosis screening: No symptoms or risk factors identified. Assessment: 13:30 General: SEE TRIAGE NOTE. bp 16:57 Reassessment: PT DC HOME AMBULATORY. bp Vital Signs: 13:27 BP 184 / 88; Pulse 89; Resp 18; Temp 98.4(O); Pulse Ox 97% on R/A; Weight 77.11 kg; ld1 Height 5 ft. 8 in. ; Pain 0/10; 14:54 BP 163 / 90; Pulse 81; Resp 18; Pulse Ox 97% on R/A; ph 16:57 BP 157 / 85; Pulse 79; Resp 16; Pulse Ox 99% ; bp 13:27 Body Mass Index 25.85 (77.11 kg, 172.72 cm) ld1 13:27 Pain Scale: Adult ld1 ED Course: 13:24 Patient arrived in ED. rg4 13:29 Dwayne Alejandro DO is Attending Physician. ms3 13:30 Triage completed. ld1 13:30 Arm band placed on right wrist. ld1 13:30 Patient has correct armband on for positive identification. Bed in low position. Call bp light in reach. Side rails up X2. 13:37 Edwin Bundy, RN is Primary Nurse. bp 14:10 CT Head Brain wo Cont Sent. bp 14:10 Inserted saline lock: 20 gauge in right antecubital area, using aseptic technique. bp Blood collected. 14:11 CT Head Brain wo Cont In Process Unspecified. EDMS 14:33 CT Head Angio In Process Unspecified. EDMS 14:33 CT Neck Angio In Process Unspecified. EDMS 15:11 Brain Wo Cont In Process Unspecified. EDMS 16:27 Johnie Mirza DO is Referral Physician. ms3 16:27 Rikki Markham MD is Referral Physician. ms3 16:35 CXR XRAY In Process Unspecified. EDMS 16:57 No provider procedures requiring assistance completed. IV discontinued, intact, bp bleeding controlled, No redness/swelling at site. Pressure dressing applied. Administered Medications: No medications were administered Medication: 16:57 VIS not applicable for this client. bp Outcome: 16:29 Discharge ordered by . ms3 16:57 Discharged to home ambulatory. bp 16:57 Condition: stable 16:57 Discharge instructions given to patient, Instructed on discharge instructions, follow up and referral plans. Demonstrated understanding of instructions, follow-up care. 16:59 Patient left the ED. bp Signatures: Dispatcher [employer] EDMS Gwen Tracy, RN RN Job, Maggi rg4 Edwin Bundy RN RN bp Dwayne Alejandro, DO ms3 Tara Alejandro RN RN ld1
--- NOTE | 2022-12-18 16:46 | RAD REPORT ---
EXAM DESCRIPTION: Yoseph Single View12/18/2022 4:33 pm CLINICAL HISTORY: Numbness COMPARISON: none FINDINGS: Right cardiophrenic opacity probably epicardial fat. The lungs appear clear of acute infiltrate. The heart is normal size IMPRESSION: No acute abnormalities displayed
[2022-12-18 17:35] VITALS: TEMP 98.4
[2022-12-18 17:37] VITALS: BP 157/85; O2SAT 99
--- NOTE | 2022-12-19 15:20 | EKG ---
Test Date: 2022-12-18 Test Time: 14:16:45 Concessions Manager: BP MEASUREMENT RESULTS: Intervals: Rate: 79 IN: 138 QRSD: 100 QT: 378 QTc: 433 [place]: P: 56 IN: 138 QRS: 26 T: 44 INTERPRETIVE STATEMENTS: Sinus rhythm with premature supraventricular complexes Incomplete right bundle branch block Borderline ECG Compared to ECG 01/21/2020 02:26:02 Atrial premature complex(es) now present Incomplete right bundle-branch block now present Electronically Signed On 12-19-22 15:20:06 CDT by Vic Lopes
== END 2022-12-18 16:59 | disposition home or self-care (01) ==
LOC: ER 13:22
DX: R20.2 Paresthesia of skin (principal); R20.0 Anesthesia of skin
CPT/HCPCS: 93005; 85025; 80048; 36415; 85610; 85730; 84484; 70450; 70496; 70498; 71045; 70551; Q9967; 99284